=== PATIENT | male | born 1950 | race Caucasian/White ===

== ENCOUNTER 2021-04-14 10:37 | Outpatient (CLI) | payer MEDICARE, OTHER | END 2021-04-14 10:38 | disposition home or self-care (01) | LOC: CSHMRI 10:37 | PROVIDERS: ATTEND Urology | DX: C61 Malignant neoplasm of prostate (principal) | CPT/HCPCS: 72197; 82565 ==

== ENCOUNTER 2024-02-05 15:28 | Outpatient (CLI) | payer MEDICARE | END 2024-02-05 15:29 | disposition home or self-care (01) | LOC: CSHCP 15:28 | PROVIDERS: ATTEND Internal Medicine Critical Care Medicine | DX: J44.9 Chronic obstructive pulmonary disease, unspecified (principal); T46.2X1A Poisoning by other antidysrhythmic drugs, accidental (unintentional), initial encounter | CPT/HCPCS: 94060; 94664; 94726; 94729; 94760 ==